=== PATIENT | male | born 1970 | race Hispanic/Latino ===

== ENCOUNTER 2017-09-08 22:49 | Emergency (ER) | payer BC ==
[2017-09-08 23:06] VITALS: BMI 31.1
[2017-09-08 23:13] VITALS: PULSE 96; RESP 18; TEMP 97.9; O2SAT 98
--- NOTE | 2017-09-08 23:21 | ED PDOC ---
Arrival/HPI - General Chief Complaint: Weakness/Neurological Deficit Time Seen by Provider: 09/08/17 22:55 Historian: Patient - History of Present Illness Narrative History of Present Illness (Text): 09/08/17 23:15 46yo male with pmhx of GERD and anxiety bib EMS for complaint of global weakness, palpitation and nausea earlier this evening. States he had the symptoms after eating a pizza at work. States his colleague at work had same pizza and complained of abdominal pain s/p. states he came to ED because he had a brief history of Afib years ago, that resolved without medication. States he saw a Auto Technician Mechanic and was told he have no Afib. He states he currently feels fine. Denies chest pain, SOB, diaphoresis, abdominal pain, nausea, vomiting, diarrhea, dizziness, focal complaint, any other complaint. Past Medical History - Provider Review Nursing Documentation Reviewed: Yes - Cardiac Hx Cardiac Disorders: Yes Hx Atrial Fibrillation: Yes (as per pt "a year and half ago but not now") - Pulmonary Hx Respiratory Disorders: No - Musculoskeletal/Rheumatological Hx Gout: Yes - Gastrointestinal Hx Gastroesophageal Reflux: Yes - Genitourinary/Gynecological Hx Genitourinary Disorders: No - Psychiatric Hx Psychophysiologic Disorder: No Hx Substance Use: No - Anesthesia Hx Anesthesia: No Family/Social History - Physician Review Nursing Documentation Reviewed: Yes Family/Social History: Unknown Family HX Smoking Status: Never Smoked Hx Alcohol Use: Yes Frequency of alcohol use: Socially Hx Substance Use: No Allergies/Home Meds Allergies/Adverse Reactions: Allergies No Known Allergies Allergy (Verified 09/08/17 23:06) Review of Systems - Physician Review All systems were reviewed & negative as marked: Yes - Review of Systems Constitutional: Fatigue Eyes: Normal ENT: Normal Respiratory: Normal Cardiovascular: Palpitations. absent: Chest Pain, Edema, Calf Pain, BLANCHARD Gastrointestinal: Normal Genitourinary Male: Normal Musculoskeletal: Normal Skin: Normal Neurological: Normal Endocrine: Normal Hemo/Lymphatic: Normal Psychiatric: Normal Physical Exam Vital Signs Reviewed: Yes Vital Signs Temp Pulse Resp BP Pulse Ox 09/08/17 22:50 97.9 F 96 H 18 155/88 H 98 Temperature: Afebrile Blood Pressure: Normal Pulse: Regular Respiratory Rate: Normal Appearance: Positive for: Well-Appearing, Non-Toxic, Comfortable Pain Distress: None Mental Status: Positive for: Alert and Oriented X 3 - Systems Exam Head: Present: Atraumatic, Normocephalic Pupils: Present: PERRL Extroacular Muscles: Present: EOMI Conjunctiva: Present: Normal Mouth: Present: Moist Mucous Membranes Neck: Present: Normal Range of Motion Respiratory/Chest: Present: Clear to Auscultation, Good Air Exchange. No: Respiratory Distress, Accessory Muscle Use Cardiovascular: Present: Regular Rate and Rhythm, Normal S1, S2. No: Murmurs Abdomen: No: Tenderness, Distention, Peritoneal Signs Back: Present: Normal Inspection Upper Extremity: Present: Normal Inspection. No: Cyanosis, Edema Lower Extremity: Present: Normal Inspection. No: Edema Neurological: Present: GCS=15, CN II-XII Intact, Speech Normal Skin: Present: Warm, Dry, Normal Color. No: Rashes Psychiatric: Present: Alert, Oriented x 3, Normal Insight, Normal Concentration Medical Decision Making ED Course and Treatment: 09/09/17 01:05 PT present for stated history. He was hemodynamically stable in ED. States his symptoms resolved. EKG NSR @82bpm His labs was unremarkable All result was DW the pt and he is stable for DC. He was advised to f/u with his PMD. He expressed understanding of all the conversation. TRT ED for any new or worsening symptoms - Lab Interpretations Lab Results: 09/08/17 23:55 09/08/17 23:55 Lab Results 09/08/17 23:55: Sodium 138, Chloride 102, Potassium 4.1, Carbon Dioxide 25, Anion Gap 16, BUN 32 H, Creatinine 0.9, Est GFR ( Amer) > 60, Est GFR ( Non-Af Amer) > 60, Random Glucose 138 H, Calcium 9.5, Phosphorus 4.2, Magnesium 1.8, Total Bilirubin 0.3, AST 27, ALT 42, Alkaline Phosphatase 94, Troponin I < 0.01, Total Protein 7.5, Albumin 4.2, Globulin 3.3, Albumin/Globulin Ratio 1.3 09/08/17 23:55: pO2 127 H, VBG pH 7.41, VBG pCO2 41.0, VBG HCO3 26.0, VBG Total CO2 27.3, VBG O2 Sat (Calc) 99.3 H, VBG Base Excess 1.2, VBG Potassium 4.0, Sodium 137.0, Chloride 102.0, Glucose 142 H, Lactate 1.8, FiO2 21.0, Venous Blood Potassium 4.0 09/08/17 23:55: PT 10.3, INR 0.91 L, APTT 26.8 09/08/17 23:55: WBC 8.2, RBC 5.05, Hgb 14.9, Hct 42.0, MCV 83.2, MCH 29.5, MCHC 35.5, RDW 12.4, Plt Count 224, MPV 9.8, Gran % 72.5 H, Lymph % (Auto) 14.7 L, White % (Auto) 11.2 H, Eos % (Auto) 1.1 L, Baso % (Auto) 0.5, Gran # 5.97, Lymph # (Auto) 1.2, White # (Auto) 0.9 H, Eos # (Auto) 0.1, Baso # (Auto) 0.04 - Medication Orders Current Medication Orders: Sodium Chloride (Sodium Chloride 0.9%) 1,000 mls @ 999 mls/hr IV .Q1H1M STA Stop: 09/09/17 01:32 Disposition/Present on Arrival - Present on Arrival Any Indicators Present on Arrival: No History of DVT/PE: No History of Uncontrolled Diabetes: No Urinary Catheter: No History of Decub. Ulcer: No History Surgical Site Infection Following: None - Disposition Have Diagnosis and Disposition been Completed?: Yes Diagnosis: Weakness Disposition: HOME/ ROUTINE Disposition Time: 01:10 Patient Plan: Discharge Condition: STABLE Discharge Instructions (ExitCare): Weakness (ED) Additional Instructions: Follow up with your Doctor Drink plenty of fluid and rest Return to ED for any new or worsening symptoms Referrals: Ronda Jean-Baptiste MD [Staff Provider] - Follow up with primary Forms: [facility] ([place])
[2017-09-09 00:23] LABS: BASO # 0.04 K/mm3 (0.0-2.0); BASO % 0.5 % (0.0-3.0); EOS # 0.1 (0.0-0.7); EOS % 1.1 % (1.5-5.0); GRAN # 5.97 (1.4-6.5); GRAN % 72.5 % (50.0-68.0); HEMOGLOBIN 14.9 g/dL (14.0-18.0); LYMPH # 1.2 (1.2-3.4); LYMPH % 14.7 % (22.0-35.0); MEAN CELL VOLUME 83.2 fl (80.0-105.0); MEAN CORPUSCULAR HEMOGLOBIN 29.5 pg (25.0-35.0); MEAN CORPUSCULAR HGB CONC 35.5 g/dl (31.0-37.0); MEAN PLATELET VOLUME 9.8 fl (7.0-11.0); MONO # 0.9 (0.1-0.6); MONO % 11.2 % (1.0-6.0); RBC 5.05 10^6/uL (3.5-6.1); RED CELL DISTRIBUTION WIDTH 12.4 % (11.5-14.5); WHITE BLOOD COUNT 8.2 10^3/ul (4.5-11.0)
[2017-09-09] MEDS ORDERED: Sodium Chloride 0.9% 1,000 ML IV STA (00:32)
[2017-09-09 00:34] LABS: INR 0.91 (0.93-1.08); PARTIAL THROMBOPLASTIN TIME 26.8 Seconds (25.1-36.5); PROTHROMBIN TIME 10.3 SECONDS (9.4-12.5)
[2017-09-09 00:41] LABS: VENOUS BLOOD GAS BASE EXCESS 1.2 mmol/L (0.0-2.0); VENOUS BLOOD GAS PO2 127 mm/Hg (30-55); VENOUS BLOOD PH 7.41 (7.32-7.43)
[2017-09-09 00:43] LABS: ALB/GLOB RATIO 1.3 (1.1-1.8); ALBUMIN 4.2 g/dL (3.0-4.8); ALT/SGPT 42 U/L (7-56); AST/SGOT 27 U/L (17-59); BLOOD UREA NITROGEN 32 mg/dL (7-21); CALCIUM 9.5 mg/dL (8.4-10.5); GFR AFRICAN-AMERICAN > 60; GFR NON-AFRICAN AMERICAN > 60
[2017-09-09 00:54] LABS: TROPONIN I < 0.01 ng/mL
[2017-09-09 01:19] LABS: URINE BILIRUBIN NEGATIVE (NEGATIVE); URINE BLOOD NEGATIVE (NEGATIVE); URINE GLUCOSE (UA) NEGATIVE (NEGATIVE); URINE LEUKOCYTE ESTERASE NEGATIVE Leu/uL (NEGATIVE); URINE PROTEIN NEGATIVE mg/dL (<30 mg/dL); URINE UROBILINOGEN 0.2 E.U./dL (<1 E.U./dL)
[2017-09-09 01:21] LABS: URINE APPEARANCE CLEAR (CLEAR); URINE COLOR YELLOW (YELLOW)
[2017-09-09 01:34] VITALS: BP 148/91
--- NOTE | 2017-09-09 17:38 | CARD ---
APPROVED REPORT Date of service: 09/08/2017 EKG Measurement Heart [id number] <Conclusion> Normal sinus rhythm Possible Left atrial enlargement Borderline ECG
== END 2017-09-09 01:40 | disposition home or self-care (01) ==
LOC: ED 22:49
DX: R53.1 Weakness (principal); I48.91 Unspecified atrial fibrillation; K21.9 Gastro-esophageal reflux disease without esophagitis